=== PATIENT | female | born 1980 | race Asian ===

== ENCOUNTER 2017-07-10 18:54 | Emergency (ER) | payer OTHER ==
[2017-07-10 19:04] VITALS: BP 125/64; PULSE 87; TEMP 97.6; BMI 21.4
[2017-07-10 19:05] LABS: URINE APPEARANCE CLOUDY; URINE BILIRUBIN Negative (NEGATIVE); URINE BLOOD 3+ (NEGATIVE); URINE COLOR YELLOW; URINE GLUCOSE (UA) Negative (NEGATIVE); URINE KETONE Negative (NEGATIVE); URINE LEUK ESTERASE 2+ (NEGATIVE); URINE NITRITE Positive (NEGATIVE); URINE PROTEIN 1+ (NEGATIVE); URINE UROBILINOGEN 0.2 (0.2-1.0)
[2017-07-10] MEDS ORDERED: NITROFURANTOIN MACROCRYSTAL 50 MG CAPSULE (FP) PO SCH (19:15)
--- NOTE | 2017-07-10 19:18 | PDOC ---
History of Present Illness - History of Present Illness Initial Comments: 07/10/17 19:32 The patient is a 37 year old female, with no significant past medical history, who presents to the emergency department with dysuria. Patient states that she thought she was having an abnormal period with pinkish tissue and blood when she wiped. She thought she may be and made an appt with her OB[facility] but they told her to go to the ER since there were no early appts. She admits she began experiencing back pain last week. She also says she experienced some light -headedness earlier today. Patient states her LMP was around mid-May. She denies recent fevers, chills, headache. She denies recent nausea, vomit, diarrhea or constipation. She denies recent frequency, urgency. She denies recent chest pain or shortness of breath. PAST MEDICAL HISTORY: no significant history PAST SURGICAL HISTORY: no significant history FAMILY HISTORY: no pertinent history SOCIAL HISTORY: Pt lives with family and is employed. MEDICATIONS: reviewed ALLERGIES: As per nursing notes ROS General: No fevers or chills, no weakness, no weight loss HEENT: No change in vision. No sore throat, No ear pain CardioVascular: No chest pain or shortness of breath Respiratory:No cough, or wheezing. Gastrointestinal: no nausea, vomiting, diarrhea or constipation, No rectal bleeding Genitourinary: +dysuria, no hematuria, or frequency Musculoskeletal: +back/flank pain. No joint pain or swelling Neurologic: No headache, vertigo, dizziness or loss of consciousness Psychiatric: nor depression Skin: No rashes or easy bruising Endocrine: no increased thirst or abnormal weight change Allergic: no skin or latex allergy All other systems reviewed and normal PE GENERAL: The patient is awake, alert, and fully oriented, in no acute distress. HEAD: Normal with no signs of trauma. EYES: Pupils equal, round and reactive to light, extraocular movements intact, sclera anicteric, conjunctiva clear. EXTREMITIES: Normal range of motion, no edema. BACK/FLANK: No cva back/flank tenderness on palpation or percussion. NEUROLOGICAL: Normal speech, normal gait. PSYCH: Normal mood, normal affect. SKIN: Warm, Dry, normal turgor, no rashes or lesions noted. <Breana Talley - Last Filed: 07/10/17 19:33> - General History Source: Patient Exam Limitations: No Limitations - History of Present Illness Initial Comments: 07/10/17 19:53 A portion of this note was documented by scribe services under my direction. I have reviewed the details of the note, within reason, and agree with the documentation. The case summary and management plan written by me. Assessment and plan: This is a 37-year-old female who comes in complaining of some dysuria and burning on urination. Patient also is concerned she may be . However she is having some spotting and her menses is approximately one week late. Patient had a test that was negative and a urinalysis that did show urinary tract infection Patient was started on Macrobid and Pyridium. Patient does have an appointment with her OB for and she was discharged and told to keep her appointment with her OB for . <Sarina Perez I - Last Filed: 07/10/17 19:54> - General Chief Complaint: Urinary Problem Stated Complaint: BURNING ON URINATION Time Seen by Provider: 07/10/17 19:11 Past History <Breana Talley - Last Filed: 07/10/17 19:33> - Past Medical History COPD: No Other medical history: DENIES - Reproductive History (#): 1 Para: 1 Spontaneous : 0 - Suicide/Smoking/Psychosocial Hx Smoking History: Never smoked Hx Alcohol Use: No Drug/Substance Use Hx: No Substance Use Type: None <Sarina Perez I - Last Filed: 07/10/17 19:54> - Past Medical History Allergies/Adverse Reactions: Allergies Allergy/AdvReac Type Severity Reaction Status Date / Time No Known Allergies Allergy Verified 07/10/17 18:55 Home Medications: Ambulatory Orders Nitrofurantoin Monohyd/M-Cryst [Macrobid -] 100 mg PO BID #10 capsule 07/10/17 Phenazopyridine HCl [Pyridium -] 100 mg PO TID #6 tablet 07/10/17 Prenat 115/Iron Fum/Folic/Dss [ 19 Tablet] 1 each PO DAILY 07/10/17 Review of Systems - Review of Systems Comments:: 07/10/17 19:36 see HPI <Breana Talley - Last Filed: 07/10/17 19:33> *Physical Exam - Vital Signs Last Vital Signs Temp Pulse Resp BP Pulse Ox 97.6 F 87 18 125/64 97 07/10/17 18:54 07/10/17 18:54 07/10/17 18:54 07/10/17 18:54 07/10/17 18:54 - Physical Exam Comments: 07/10/17 19:36 see HPI <Breana Talley - Last Filed: 07/10/17 19:33> - Vital Signs Last Vital Signs Temp Pulse Resp BP Pulse Ox 97.6 F 87 18 125/64 97 07/10/17 18:54 07/10/17 18:54 07/10/17 18:54 07/10/17 18:54 07/10/17 18:54 <Sarina Perez I - Last Filed: 07/10/17 19:54> ED Treatment Course - ADDITIONAL ORDERS Additional order review: Laboratory Results 07/10/17 18:58 Urine Color Yellow Urine Appearance Cloudy Urine pH 5.0 Ur Specific Elroy 1.020 Urine Protein 1+ H Urine Glucose (UA) Negative Urine Ketones Negative Urine Blood 3+ H Urine Nitrite Positive Urine Bilirubin Negative Urine Urobilinogen 0.2 Ur Leukocyte Esterase 2+ H Urine HCG, Qual Negative <Breana Talley - Last Filed: 07/10/17 19:33> - ADDITIONAL ORDERS Additional order review: Laboratory Results 07/10/17 18:58 Urine Color Yellow Urine Appearance Cloudy Urine pH 5.0 Ur Specific Elroy 1.020 Urine Protein 1+ H Urine Glucose (UA) Negative Urine Ketones Negative Urine Blood 3+ H Urine Nitrite Positive Urine Bilirubin Negative Urine Urobilinogen 0.2 Ur Leukocyte Esterase 2+ H Urine HCG, Qual Negative <Sarina Perez I - Last Filed: 07/10/17 19:54> *DC/Admit/Observation/Transfer - Attestations Scribe Attestion: 07/10/17 19:36 Documentation prepared by Breana Talley, acting as medical imaging specialist for Sarina Perez MD. <Breana Talley - Last Filed: 07/10/17 19:33> - Discharge Dispostion Admit: No <Sarina Perez I - Last Filed: 07/10/17 19:54> Diagnosis at time of Disposition: Cystitis - Discharge Dispostion Disposition: HOME Condition at time of disposition: Stable - Prescriptions Prescriptions: Nitrofurantoin Monohyd/M-Cryst [Macrobid -] 100 mg PO BID #10 capsule Phenazopyridine HCl [Pyridium -] 100 mg PO TID #6 tablet - Patient Instructions Printed Discharge Instructions: Urinary Tract Infection Additional Instructions: Keep your appointment with your OB on . For the urinary tract infection take Macrobid 1 tablet twice a day for 5 days. Tylenol or Motrin as needed for pain. Return to the emergency department immediately with ANY new, persistent or worsening symptoms. Continue any medications as previously prescribed by your physician. You should follow up with your primary doctor as soon as possible regarding today's emergency department visit. . Please make sure your doctor reviews the results of your emergency evaluation. Thank you for coming to the Emergency Department today for your care. It was a pleasure to see you today. Please note that your evaluation is INCOMPLETE until you follow-up with your doctor.
[2017-07-10] MEDS ORDERED: NITROFURANTOIN MACROCRYSTAL 50 MG CAPSULE (FP) ONE (19:31)
[2017-07-10 19:38] LABS: URINE BACTERIA MODERATE /hpf (NEGATIVE); URINE RBC 20-40 /hpf (0-3); URINE WBC >100 (0-5)
[2017-07-10] MEDS ORDERED: PHENAZOPYRIDINE HCL 100 MG TABLET (FP) PO ONE (19:43)
[2017-07-10] MEDS ORDERED: PHENAZOPYRIDINE HCL 100 MG TABLET (FP) ONE (19:47)
== END 2017-07-10 19:35 | disposition home or self-care (01) ==
LOC: FER 18:54
DX: N30.90 Cystitis, unspecified without hematuria (principal)
CPT/HCPCS: 81003; 81015; 84703; 87086; 87186; 99282-25